=== PATIENT | male | born 1970 | race Caucasian/White ===

== ENCOUNTER 2016-12-19 15:01 | Emergency (ER) | payer OTHER ==
[~2016-12-19] VITALS: Ht 175.3 cm; Wt 125.0 kg
[~2016-12-19 15:01] MED LIST: ASPI-535; GLIP-95; METF500T4; PRA40; SITA100T8
[2016-12-19] MEDS ORDERED: SOD CHLORIDE 0.9% 1,000 ML IV STA (15:10)
[2016-12-19 15:13] VITALS: Ht 175.3 cm; Wt 125.0 kg
[2016-12-19 15:29] LABS: Allen Test ACCEPTAB; MODE ROOM AIR; MetHgb Venous 0.3 %; Sample Type Blood venous; Venous COHb 0.8 %; Venous Fraction OxyHgb 70.5 %; Venous Total Hemglobin 16.2 g/dl
[2016-12-19] MEDS ORDERED: THIAMINE 100 MG TAB PO ONE (15:30)
[2016-12-19] MEDS ORDERED: FOLIC ACID 1 MG TAB PO ONE (15:30)
--- NOTE | 2016-12-19 15:32 | ERD ---
ER Documentation Chief Complaint Date/Time DATE: 12/19/16 TIME: 15:29 Chief Complaint ETOH, HYPERGLYCEMIA, CP HPI 46-year-old male history of alcohol abuse, insulin-dependent diabetes who presents emergency room with generalized fatigue, dizziness. He states that he has been drinking he is outside and homeless. The patient states that he felt slightly lightheaded. He denies any falls or trauma. He denies any chest pain. The patient's Accu-Chek in the field was noted to be elevated and he states noncompliance of medication for greater than 1 year. The patient states that he usually takes insulin and metformin and possibly glipizide but he has not taken his medication for greater than 1 year. The patient denies any fevers or chills, no headache no abdominal pain nausea or vomiting. ROS All systems reviewed and are negative except as per history of present illness. Medications Home Meds Active Scripts Metformin* (Glucophage*) 1,000 Mg Tablet, 1000 MG PO BID for 30 Days, TAB Prov:RUBIA DEL REAL MD 12/19/16 Glipizide* (Glipizide*) 10 Mg Tablet, 10 MG PO AC BREAKFAST for 30 Days, TAB Prov:RUBIA DEL REAL MD 12/19/16 Simvastatin (Simvastatin) 10 Mg Tablet, 10 MG PO QHS, #30 TAB Prov:RUBIA DEL REAL MD 12/19/16 Atenolol* (Atenolol*) 50 Mg Tablet, 50 MG PO DAILY, #30 TAB Prov:RUBIA DEL REAL MD 12/19/16 Reported Medications Amoxicillin/Potassium Clav (Amox-Clav 875-125 mg Tablet) 875-125 mg Tab, 1 TAB PO BID, #20 TAB 12/19/16 Atenolol* (Atenolol*) 50 Mg Tablet, 50 MG PO DAILY, #30 TAB 12/19/16 Simvastatin* (Zocor*) 10 Mg Tablet, 10 MG PO QHS, #30 TAB 12/19/16 Metformin Hcl* (Metformin Hcl*) 1,000 Mg Tablet, 1000 MG PO WITH BREAKFAST DINNE , #60 TAB 12/19/16 Glipizide* (Glipizide*) 10 Mg Tablet, 10 MG PO AC BREAKFAST, TAB 12/19/16 Aspirin* (Aspirin* EC) 81 Mg Tablet., 81 MG PO DAILY, TAB 12/19/16 Discontinued Reported Medications Pravastatin Sodium* (Pravachol*) 40 Mg Tablet 08/16/09 Aspirin Ec (Aspir 81) 81 Mg Tablet. 08/16/09 Glipizide* (Glipizide*) 10 Mg Tablet 08/16/09 Sitagliptin* (Januvia*) 100 Mg Tablet 08/16/09 Metformin* (Glucophage*) 500 Mg Tab 08/16/09 Allergies Allergies: Coded Allergies: hydrocodone (Unverified Allergy, Unknown, 12/19/16) PMhx/Soc History of Surgery: No Hx Neurological Disorder: No Hx Respiratory Disorders: No Hx Cardiac Disorders: Yes (HYPERTENSION) Hx Miscellaneous Medical Probl: No Hx Alcohol Use: Yes Hx Substance Use: No Hx Tobacco Use: No FmHx Family History: No diabetes Physical Exam Vitals Vital Signs Date Time Temp Pulse Resp B/P Pulse Ox O2 Delivery O2 Flow Rate FiO2 12/19/16 16:02 91 18 134/83 97 Room Air 12/19/16 15:13 98.7 101 20 144/96 96 Physical Exam General: Slightly disheveled but no significant distress Head: Normocephalic, atraumatic. Eyes: Pupils equally reactive, EOM intact ENT: Moist mucous membranes Neck: Supple, no lymphadenopathy Respiratory: Lungs clear bilaterally, no distress Cardiovascular: RRR, no murmurs, rubs, or gallops Abdominal: Soft, non-tender, non-distended, no peritoneal signs : Deferred MSK: No edema, no unilateral swelling, 5/5 strength Neurologic: Alert and oriented, moving all extremities, normal speech, no focal weakness, no cerebellar signs Skin: No rash Psych: Normal mood Result Diagram: 12/19/16 1523 12/19/16 1523 Results 24 hrs Laboratory Tests Test 12/19/16 15:10 12/19/16 15:23 12/19/16 15:58 12/19/16 16:23 Blood Gas Specimen Source Blood venous Arterial Blood Date Drawn 12/19/2016 3:20:34 PM Arterial Blood Gas Puncture Site VENOUS LINE Jareth Test ACCEPTAB Venous Blood pH 7.358 Venous Blood pCO2 (Temp Corrected) 40.5mmHG Venous Blood pO2 (Temp Corrected) 39.2mmHG Venous Blood HCO3 22.3mmol/L Venous Blood Oxygen Saturation 71.3mmHG Venous Blood Base Excess -3.0mmol/L Venous Blood Total Hemoglobin 16.2g/dl Venous Blood Oxyhemoglobin 70.5% Venous Blood Methemoglobin 0.3% Carboxyhemoglobin 0.8% Blood Gas Temperature 37.0C Blood Gas Modality ROOM AIR FiO2 21.0% Blood Gas Notified Whom M.Ester Blood Gas Notified Time 12/19/2016 3:29:32 PM White Blood Count 6.110^3/ul Red Blood Count 4.8010^6/ul Hemoglobin 15.1g/dl Hematocrit 42.0% Mean Corpuscular Volume 87.5fl Mean Corpuscular Hemoglobin 31.5pg Mean Corpuscular Hemoglobin Concent 36.0g/dl Red Cell Distribution Width 11.6% Platelet Count 84564^3/UL Mean Platelet Volume 10.6fl Neutrophils % 57.9% Lymphocytes % 33.9% Monocytes % 5.7% Eosinophils % 1.5% Basophils % 0.7% Nucleated Red Blood Cells % 0.0/100WBC Neutrophils # 3.610^3/ul Lymphocytes # 2.110^3/ul Monocytes # 0.410^3/ul Eosinophils # 0.110^3/ul Basophils # 0.010^3/ul Nucleated Red Blood Cells # 0.010^3/ul Sodium Level 141mmol/L Potassium Level 4.1mmol/L Chloride Level 103mmol/L Carbon Dioxide Level 25mmol/L Anion Gap 17 Blood Urea Nitrogen 7mg/dl Creatinine 0.69mg/dl Glucose Level 307mg/dl Calcium Level 9.5mg/dl Bedside Glucose 276mg/dL Urine Color YELLOW Urine Clarity CLEAR Urine pH 5.0 Urine Specific [place] 1.023 Urine Ketones NEGATIVEmg/dL Urine Nitrite NEGATIVEmg/dL Urine Bilirubin NEGATIVEmg/dL Urine Urobilinogen NEGATIVEmg/dL Urine Leukocyte Esterase 1+Farhat/ul Urine Microscopic RBC 2/HPF Urine Microscopic WBC 8/HPF Urine Squamous Epithelial Cells FEW/HPF Urine Hemoglobin 1+mg/dL Urine Glucose 3+mg/dL Urine Total Protein NEGATIVEmg/dl Current Medications Medications (Trade) Dose Ordered Sig/Alberta Route PRN Reason Start Time Stop Time Status Last Admin Dose Admin Sodium Chloride (NS) 1,000 ml @ 1,000 mls/hr Q1H STAT IV 12/19/16 15:10 12/19/16 16:09 DC 12/19/16 15:28 Folic Acid (Folic Acid) 1 mg ONCE ONCE PO 12/19/16 15:30 12/19/16 15:31 DC 12/19/16 16:21 Thiamine HCl (Vitamin B1) 100 mg ONCE ONCE PO 12/19/16 15:30 12/19/16 15:31 DC 12/19/16 16:20 Procedures/MDM EKG, MONITORS, & DIAGNOSTIC IMAGING: EKG: I reviewed and interpreted a 12-lead EKG. Rhythm: Normal sinus rhythm Ectopy: None Intervals: No abnormalities ST segments: No elevations or depressions T waves: No contiguous inversions LAB INTERPRETATION: Hyperglycemia without diabetic ketoacidosis MEDICAL DECISION MAKING: The patient presents with lightheadedness and dizziness after binge drinking, history of alcohol abuse and diabetes noncompliant with medications for 1 year. The patient is unlikely to be in diabetic ketoacidosis though certainly possible given his insulin dependence and noncompliance. The patient will benefit from laboratory testing to rule out this process including venous blood gas. The patient will benefit from multivitamins including thiamine and folic acid given his chronic alcohol abuse. No evidence of significant alcohol withdrawal currently. The patient is homeless and it is warm outside, suspicion for malingering given the chronicity of his symptoms. ER COURSE: The patient was given IV fluids, thiamine, folic acid. He has no evidence of DKA. Looking through the patient's electronic medical record and it does not appear the patient has ever been on insulin. For this reason I do not feel comfortable prescribing insulin as an outpatient. The patient will be started on glipizide and metformin. Since the patient is not in DKA with greater than 1 year of no insulin use it is unlikely that he is an insulin-dependent diabetic. [facility] referral information was provided to the patient. I kept the patient and/or family informed of laboratory and diagnostic imaging results throughout the emergency room course. DISPOSITION PLAN: We discussed follow up with the patient's primary care doctor within 24 to 48 hours as needed. We also discussed return to the emergency room for worsening symptoms or worsening condition. Outpatient referral: [None required] Discharge Medications: Atenolol 50 mg daily simvastatin 10 mg nightly, glipizide 10 mg p.o. once daily , metformin 1000 mg twice daily Departure Diagnosis: Primary Impression: Alcohol abuse Additional Impression: Hyperglycemia Condition: Stable BORM, RUBIA A., MD Dec 19, 2016 15:32
[2016-12-19 15:38] LABS: ADD SCAN DIFF NO
[2016-12-19 15:42] LABS: BASOPHILS % 0.7 % (0.0-2.0); EOSINOPHILS # 0.1 10^3/ul (0.0-0.5); EOSINOPHILS % 1.5 % (0.0-7.0); HEMOGLOBIN 15.1 g/dl (14.0-18.0); LYMPHOCYTES # 2.1 10^3/ul (0.8-2.9); LYMPHOCYTES % 33.9 % (15.0-51.0); MEAN CORPUSCULAR HEMOGLOBIN 31.5 pg (29.0-33.0); MEAN CORPUSCULAR VOLUME 87.5 fl (82.0-101.0); MEAN PLATELET VOLUME 10.6 fl (7.4-10.4); MONOCYTE # 0.4 10^3/ul (0.3-0.9); MONOCYTES % 5.7 % (0.0-11.0); NEUTROPHIL # 3.6 10^3/ul (1.6-7.5); NEUTROPHILS % 57.9 % (39.0-77.0); PLATELET COUNT 112 10^3/UL (140-415); RED CELL DISTRIBUTION WIDTH 11.6 % (11.5-14.5); WHITE BLOOD COUNT 6.1 10^3/ul (4.8-10.8)
[2016-12-19] MEDS ORDERED: ASPI-664 PO (15:50)
[2016-12-19] MEDS ORDERED: GLIP-95 PO ×2 (15:50→17:32)
[2016-12-19] MEDS ORDERED: ATEN50TA PO ×2 (15:51→17:32)
[2016-12-19] MEDS ORDERED: METF1000 PO (15:51)
[2016-12-19] MEDS ORDERED: SIMV10TA PO (15:51)
[2016-12-19] MEDS ORDERED: AMOX1TAB10 PO (15:53)
[2016-12-19 15:56] LABS: CALCIUM 9.5 mg/dl (8.4-10.2); CREATININE 0.69 mg/dl (0.61-1.24); POTASSIUM 4.1 mmol/L (3.5-5.1)
[2016-12-19 16:44] LABS: ADD UMIC YES; UR ASCORBIC ACID NEGATIVE (NEGATIVE); UR BILIRUBIN (Dip) NEGATIVE (NEGATIVE); UR BLOOD (Dip) 1+ mg/dL (NEGATIVE); UR CLARITY CLEAR (CLEAR); UR COLOR YELLOW (YELLOW); UR GLUCOSE (Dip) 3+ mg/dL (NEGATIVE); UR KETONES (Dip) NEGATIVE (NEGATIVE); UR LEUKOCYTE ESTERASE (Dip) 1+ Leu/ul (NEGATIVE); UR NITRITE (Dip) NEGATIVE (NEGATIVE); UR RBC 2 /HPF (0-5); UR SPECIFIC GRAVITY (Dip) 1.023 (1.003-1.030); UR SQUAMOUS EPITHELIAL CELL FEW /HPF (FEW); UR TOTAL PROTEIN (Dip) NEGATIVE (NEGATIVE); UR UROBILINOGEN (Dip) NEGATIVE (NEGATIVE)
[2016-12-19] MEDS ORDERED: MTF1000T PO (17:32)
[2016-12-19] MEDS ORDERED: ZOC10 PO (17:32)
[2016-12-19 17:42] VITALS: BP 111/71; PULSE 86; RESP 16
== END 2016-12-19 17:43 | disposition home or self-care (01) ==
LOC: E/R 15:01
DX: F10.10 Alcohol abuse, uncomplicated (principal); E11.65 Type 2 diabetes mellitus with hyperglycemia; I10 Essential (primary) hypertension; Z79.82 Long term (current) use of aspirin; Z79.84 Long term (current) use of oral hypoglycemic drugs
CPT/HCPCS: 36415; 80048; 81001; 82803; 82962; 85025; 93005; J7030; Z7502; Z7610

== ENCOUNTER 2017-01-07 17:13 | Emergency (ER) | payer OTHER ==
[~2017-01-07] VITALS: Ht 177.8 cm; Wt 98.0 kg
[~2017-01-07 17:13] MED LIST changes: +AMOX1TAB10 PO; -ASPI-535; +ASPI-664 PO; +ATEN50TA PO; -GLIP-95; +GLIP-95 PO; +METF1000 PO; -METF500T4; +MTF1000T PO; -PRA40; +SIMV10TA PO; -SITA100T8; +ZOC10 PO
[2017-01-07 17:16] VITALS: Ht 177.8 cm; Wt 98.0 kg
[2017-01-07] MEDS ORDERED: ONDANSETRON (ODT) 4 MG TAB ODT STA (20:01)
[2017-01-07] MEDS ORDERED: ONDA4TAB11 PO (20:11)
--- NOTE | 2017-01-07 20:15 | ERD ---
ER Documentation Chief Complaint Date/Time DATE: 01/07/17 TIME: 20:13 Chief Complaint BIB RA FOR ETOH , PT A/OX 4 HPI This 46-year-old male is brought in by ambulance for alcohol intoxication after he was found sleeping outside. He is wide awake and states that he was drinking earlier today. Does not feel that he is as drunk now. Does have some nausea. Otherwise denies pain and denies any trauma. Paramedics is that the patient was alert and cooperative as well. ROS All systems reviewed and are negative except as per history of present illness. Medications Home Meds Active Scripts Ondansetron (Zofran Odt) 4 Mg Tab.rapdis, 4 MG PO Q6 for NAUSEA, #10 Prov:REGGIEDANI 01/07/17 Metformin* (Glucophage*) 1,000 Mg Tablet, 1000 MG PO BID for 30 Days, TAB Prov:RUBIA DEL REAL MD 12/19/16 Glipizide* (Glipizide*) 10 Mg Tablet, 10 MG PO AC BREAKFAST for 30 Days, TAB Prov:RUBIA DEL REAL MD 12/19/16 Simvastatin (Simvastatin) 10 Mg Tablet, 10 MG PO QHS, #30 TAB Prov:RUBIA DEL REAL MD 12/19/16 Atenolol* (Atenolol*) 50 Mg Tablet, 50 MG PO DAILY, #30 TAB Prov:RUBIA DEL REAL MD 12/19/16 Reported Medications Amoxicillin/Potassium Clav (Amox-Clav 875-125 mg Tablet) 875-125 mg Tab, 1 TAB PO BID, #20 TAB 12/19/16 Atenolol* (Atenolol*) 50 Mg Tablet, 50 MG PO DAILY, #30 TAB 12/19/16 Simvastatin* (Zocor*) 10 Mg Tablet, 10 MG PO QHS, #30 TAB 12/19/16 Metformin Hcl* (Metformin Hcl*) 1,000 Mg Tablet, 1000 MG PO WITH BREAKFAST DINNE , #60 TAB 12/19/16 Glipizide* (Glipizide*) 10 Mg Tablet, 10 MG PO AC BREAKFAST, TAB 12/19/16 Aspirin* (Aspirin* EC) 81 Mg Tablet.dr, 81 MG PO DAILY, TAB 12/19/16 Allergies Allergies: Coded Allergies: hydrocodone (Unverified Allergy, Unknown, 12/19/16) PMhx/Soc Medical and Surgical Hx: pt denies Surgical Hx History of Surgery: No Hx Neurological Disorder: No Hx Respiratory Disorders: No Hx Cardiac Disorders: Yes (HYPERTENSION) Hx Psychiatric Problems: No Hx Miscellaneous Medical Probl: No Hx Alcohol Use: Yes Hx Substance Use: No Hx Tobacco Use: No Smoking Status: Never smoker Physical Exam Vitals Vital Signs Date Time Temp Pulse Resp B/P Pulse Ox O2 Delivery O2 Flow Rate FiO2 01/07/17 19:47 99 16 133/95 95 Room Air 01/07/17 17:16 98.0 112 18 126/77 99 Physical Exam Const: [] No distress Head: Atraumatic Eyes: Normal Conjunctiva, EOMI, PRL ENT: Normal External Ears, Nose and Mouth. Neck: Full range of motion..~ No meningismus. Resp: Clear to auscultation bilaterally Cardio: Regular rate and rhythm, no murmurs Abd: Soft, non tender, non distended. Normal bowel sounds Skin: No petechiae or rashes Ext: No cyanosis, or edema Neur: Awake and alert oriented 3, no focal deficits Results 24 hrs Current Medications Medications (Trade) Dose Ordered Sig/Alberta Route PRN Reason Start Time Stop Time Status Last Admin Dose Admin Ondansetron HCl (Zofran Odt) 4 mg ONCE STAT ODT 01/07/17 20:01 01/07/17 20:02 DC Procedures/MDM 46-year-old male that was intoxicated sleeping outside. His alcohol use but was alert and oriented 3 with no blatant signs of intoxication on arrival. Was observed in the emergency room for 2 hours. Is clinically sober. He was given a Zofran ODT tab for some nausea without vomiting. No signs of trauma. I am going to discharge him with primary care follow-up with local clinics as well as some Zofran tabs. Departure Diagnosis: Primary Impression: Nausea Additional Impression: Alcoholic intoxication Condition: Stable Patient Instructions: Nausea, Alcohol Intoxication Referrals: COMMUNITY CLINICS YOU HAVE RECEIVED A MEDICAL SCREENING EXAM AND THE RESULTS INDICATE THAT YOU DO NOT HAVE A CONDITION THAT REQUIRES URGENT TREATMENT IN THE EMERGENCY DEPARTMENT. FURTHER EVALUATION AND TREATMENT OF YOUR CONDITION CAN WAIT UNTIL YOU ARE SEEN IN YOUR DOCTORS OFFICE WITHIN THE NEXT 1-2 DAYS. IT IS YOUR RESPONSIBILITY TO MAKE AN APPOINTMENT FOR FOLOW-UP CARE. IF YOU HAVE A PRIMARY DOCTOR --you should call your primary doctor and schedule an appointment IF YOU DO NOT HAVE A PRIMARY DOCTOR YOU CAN CALL OUR PHYSICIAN REFERRAL HOTLINE AT IF YOU CAN NOT AFFORD TO SEE A PHYSICIAN YOU CAN CHOSE FROM THE FOLLOWING [facility] [address] [facility] [facility] [address] [facility] [facility] [address] [facility] [address] [address] [facility] [address] [facility]. [facility] [address] Additional Instructions: Call your primary care doctor TOMORROW for an appointment during the next 2-3 days.See the doctor sooner or return here if your condition worsens before your appointment time. DANI PAREDES DO Jan 07, 2017 20:15
[2017-01-07 20:55] VITALS: BP 118/77; PULSE 90; RESP 18
== END 2017-01-07 20:55 | disposition home or self-care (01) ==
LOC: E/R 17:13
DX: R11.0 Nausea (principal); R40.2242 Coma scale, best verbal response, confused conversation, at arrival to emergency department; I10 Essential (primary) hypertension; R40.2142 Coma scale, eyes open, spontaneous, at arrival to emergency department; R40.2362 Coma scale, best motor response, obeys commands, at arrival to emergency department; Z79.82 Long term (current) use of aspirin; Z79.84 Long term (current) use of oral hypoglycemic drugs
CPT/HCPCS: Z7502; Z7610; 99283